=== PATIENT | male | born 1950 | race Caucasian/White ===

== ENCOUNTER 2019-05-29 03:00 | Emergency (ER) | payer MEDICAID, MEDICARE ==
[~2019-05-29] VITALS: Ht 185.4 cm; Wt 75.0 kg
[~2019-05-29 03:00] MED LIST: CARV6.252 PO; PARO40TA61 PO
[2019-05-29 03:03] VITALS: BP 114/70
--- NOTE | 2019-05-29 03:34 | NUR ---
PT PROVIDED WITH DISCHARGE PAPERWORK. EXPLAINED IN DETAIL. STATES "CAN I STAY HERE? I DON'T HAVE ANYWHERE TO GO". THE PT WAS ADVISED HE CANNOT STAY HERE IN THE ROOM SINCE HE HAS BEEN DISCHARGED. A CAB VOUCHER TO THE [facility] WAS OFFERED BUT THE PATIENT REFUSED. THIS RN AND SAVITA YANCEY WENT BACK IN A FEW MINUTES LATER, PT STILL LYING ON GURNEY STATING "I CAN'T GET UP. I HAVE ANOTHER CONDITION NOW". PT ENCOURAGED TO GET UP AND GATHER HIS BELONGINGS, STILL REFUSES. PT ADVISED SECURITY WILL BE CALLED TO ESCORT PT OUT IF HE WILL NOT LEAVE.
--- NOTE | 2019-05-29 03:49 | NUR ---
WHEN STAFF WENT IN TO GET THE PT TO LEAVE, THE PT THREW HIS DISCHARGE PAPERWORK AT STAFF. SECURITY CALLED TO ESCORT PT OUT.
== END 2019-05-29 03:41 | disposition home or self-care (01) ==
LOC: ED 03:35
DX: F41.1 Generalized anxiety disorder (principal); Z76.0 Encounter for issue of repeat prescription; Z72.9 Problem related to lifestyle, unspecified; J44.9 Chronic obstructive pulmonary disease, unspecified; G89.29 Other chronic pain
CPT/HCPCS: 99283

== ENCOUNTER 2020-08-31 23:13 | Emergency (ER) | payer MEDICARE, MEDICAID ==
[~2020-08-31] VITALS: Ht 185.4 cm; Wt 75.0 kg
[2020-08-31] MEDS ORDERED: THIAMINE 100MG TABLET PO ONE (23:30)
[2020-08-31] MEDS ORDERED: THIAMINE 100MG TABLET ONE (23:32)
[2020-08-31 23:39] LABS: BASOPHILS % (AUTO) 0 % (0-1); EOSINOPHILS % (AUTO) 2 % (1-7); LYMPHOCYTES % (AUTO) 23 % (22-44); MEAN CORPUSCULAR HGB CONC 33.9 g/dL (33.2-36.2); MEAN PLATELET VOLUME 6.8 fL (7.4-10.4); MONOCYTES % (AUTO) 10 % (2-9); NEUTROPHILS % (AUTO) 65 % (42-75); PLATELET COUNT 215 x10^3/uL (130-400); RED BLOOD COUNT 4.93 x10^6/uL (4.38-5.82); RED CELL DISTRIBUTION WIDTH 16.3 % (9.4-14.8)
[2020-08-31 23:40] LABS: MD NO
[2020-08-31 23:46] LABS: ALANINE AMINOTRANSFERASE 29 U/L (12-78); ALBUMIN 3.4 g/dL (3.4-5.0); ANION GAP 12 mmol/L (5-15); CALCIUM 7.9 mg/dL (8.5-10.1); CHLORIDE 106 mmol/L (98-107); CREATININE 0.95 mg/dL (0.7-1.3); SALICYLATE LEVEL 4.9 mg/dL (2.8-20.0)
[2020-08-31 23:49] LABS: ALKALINE PHOSPHATASE 79 U/L (45-117); BILIRUBIN,TOTAL 0.3 mg/dL (0.2-1.0); TOTAL PROTEIN 7.2 g/dL (6.4-8.2)
--- NOTE | 2020-08-31 23:56 | NUR ---
Pt to ER with c/o not feeling well. States he feels depressed, started drinking again after getting evicted from his house. Pt states he feels suicidal but has no plan. Pt calm and cooperative. In gown, on monitor. Pt with no distress. VSS. Pt stood at bedside and used urinal without difficulty. Will monitor.
[2020-08-31 23:58] LABS: MICROSCOPIC NOT IND
[2020-09-01 00:10] LABS: AMPHETAMINE SCREEN, URINE Negative (Negative); BARBITURATE SCREEN, URINE Negative (Negative); BENZODIAZEPINE SCREEN, URINE Negative (Negative); CANNABINOID SCREEN, URINE Negative (Negative); COCAINE SCREEN, URINE Negative (Negative); METHADONE SCREEN, URINE Negative (Negative); OPIATE SCREEN, URINE Negative (Negative)
--- NOTE | 2020-09-01 00:41 | NUR ---
Provided pt sandwich and water per MD approval. Pt sitting up in gurney eating, denies needs at this time.
--- NOTE | 2020-09-01 02:49 | NUR ---
Pt calm in bed. Resting, VSS. Pt free of harm. Pt with in no distress. Call light in reach. Will continue to monitor.
--- NOTE | 2020-09-01 06:14 | NUR ---
Pt with no changes. Sleeping, awakes to verbal stimuli and has no complaints. Pt free of harm. VSS. Will continue to monitor. Warm blanket given.
--- NOTE | 2020-09-01 06:51 | NUR ---
REPORT RECEIVED FROM NAMAN OBANDO.
--- NOTE | 2020-09-01 07:52 | NUR ---
PT RESTING COMFORTABLY IN BED
--- NOTE | 2020-09-01 08:51 | NUR ---
BREAKFAST PROVIDED. PT RESTING COMFORTABLY, CALL LIGHT WITHIN REACH.
[2020-09-01 09:55] VITALS: BP 105/72
--- NOTE | 2020-09-01 09:56 | NUR ---
PT RESTING COMFORTABLY. AWAITING PSYCH CONSULT
--- NOTE | 2020-09-01 10:15 | NUR ---
HUBER DONG AT BEDSIDE
[2020-09-01] MEDS ORDERED: DULOXETINE 30 MG CAPSULE.DR PO SCH (11:00)
--- NOTE | 2020-09-01 11:34 | NUR ---
DISCHARGE INSTRUCTIONS REVIEWED WITH PT. ALL QUESTIONS ANSWERED AT THIS TIME.
== END 2020-09-01 11:36 | disposition home or self-care (01) ==
LOC: ED 23:45
DX: F10.220 Alcohol dependence with intoxication, uncomplicated (principal); R45.851 Suicidal ideations; R30.0 Dysuria; Z72.9 Problem related to lifestyle, unspecified; F17.210 Nicotine dependence, cigarettes, uncomplicated; G89.29 Other chronic pain; J44.9 Chronic obstructive pulmonary disease, unspecified; Y90.0 Blood alcohol level of less than 20 mg/100 ml
CPT/HCPCS: 36415; 80053; 80299; 80307; 80320; 80329; 81003; 85025; 99285; 99406; G0480